=== PATIENT | female | born 2000 | race Caucasian/White ===

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

== ENCOUNTER → 2019-04-10 | Outpatient (REF) | payer OTHER ==
[~2019-04-10] MED LIST changes: +BENA25CA4 PO
== END ==
LOC: M SFHCLERA 13:30
PROVIDERS: ATTEND Nurse Practitioner Family
DX: J02.9 Acute pharyngitis, unspecified (principal)

== ENCOUNTER → 2019-06-16 | Outpatient (REF) | payer BC, OTHER ==
[2019-06-16 22:19] LABS: CHLAMYDIA DNA AMPLIFICATION NEGATIVE (NEGATIVE); GC DNA AMPLIFICATION NEGATIVE (NEGATIVE)
== END ==
LOC: M SFHCLERA 14:50
PROVIDERS: ATTEND Nurse Practitioner Family
DX: N89.8 Other specified noninflammatory disorders of vagina (principal)

== ENCOUNTER 2019-07-15 02:45 | Emergency (ER) | payer BC, OTHER ==
[~2019-07-15] VITALS: Ht 152.4 cm; Wt 111.4 kg
[2019-07-15] MEDS ORDERED: ATEN25TA PO (02:52)
[2019-07-15 06:21] VITALS: BP 122/72
== END 2019-07-15 06:22 | disposition home or self-care (01) ==
LOC: M ED 02:45
DX: J06.9 Acute upper respiratory infection, unspecified (principal); F17.290 Nicotine dependence, other tobacco product, uncomplicated; Z88.5 Allergy status to narcotic agent; Z79.899 Other long term (current) drug therapy

== ENCOUNTER → 2020-03-25 | Outpatient (REF) | payer BC, OTHER ==
[~2020-03-25] MED LIST changes: +ATEN25TA PO
== END ==
LOC: M SFHCLERA 15:17
PROVIDERS: ATTEND Physician Assistant
DX: N89.8 Other specified noninflammatory disorders of vagina (principal)
CPT/HCPCS: 81002; 81025; 87070; 87077; 87186; G0463

== ENCOUNTER → 2020-05-01 | Outpatient (REF) | payer BC, OTHER | LOC: M SFHCLERA 12:19 | PROVIDERS: ATTEND Physician Assistant | DX: N89.8 Other specified noninflammatory disorders of vagina (principal) ==

== ENCOUNTER → 2020-05-22 | Outpatient (REF) | payer BC, OTHER | LOC: M SFHCLERA 10:30 | PROVIDERS: ATTEND Physician Assistant | DX: J02.9 Acute pharyngitis, unspecified (principal) ==